=== PATIENT | female | born 2000 | race African-American/Black ===

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

== ENCOUNTER → 2021-05-04 14:55 | Outpatient (CLI) | payer OTHER, SELFPAY ==
--- NOTE | ~2021-05-04 | MR_ITS ---
EXAMINATION: MR knee LT wo con DATE: 05/04/2021 15:36 INDICATION: Acute onset left knee pain post fall one month prior. TECHNIQUE: Magnetic resonance imaging (MRI) of the left knee was performed without intravenous contra st. Sequences included coronal PD-weighted FSE, coronal PD-weighted FS FSE, sagittal T2-weighted FSE , sagittal PD-weighted FS FSE and axial PD weighted fat saturated FSE. COMPARISON: None. FINDINGS: Medial compartment: On the sagittal images there is oblique linear increased signal extending across the peripheral third of the posterior horn of the medial meniscus contacting the superior articular surface on 3 consecut laxmi images consistent with a longitudinal vertical meniscal tear. Signal is however less than fluid s ignal intensity and given the postoperative changes at the knee this remains equivocal for either tea r versus repaired tear in the appropriate clinical setting. Correlate with surgical history. Articula r cartilage is normal. Lateral compartment: Lateral meniscus is normal. Articular cartilage is normal. Patellofemoral compartment: Articular cartilage is normal. Ligaments and tendons: Postoperative change of prior anterior cruciate ligament reconstruction. There is at least partial te ar of the graft 1 bundle which is discontinuous with lax appearance. The second bundle maintains a no rmal orientation and angle relative to normal. And may still be intact. There is however anterior subluxation of the tibia relative to the distal fe mur. Posterior cruciate ligament is normal. There is thickened soft tissue tissue density along the s uperficial margin of the medial collateral ligament without significant surrounding edema which sugge sts scarring related to chronic sprain. The fibular collateral ligament complex is normal. Patellar t endon appears diffusely thickened which could be related to moderate tendinopathy however there appea rs to be sagittal oriented region of the central thinning along the tendon in this could also represe nt residual scarring related to prior patellar tendon autograft harvest. The visualized medial and la teral hamstring tendons as well as the iliotibial band are normal. Fluid: Small left knee joint effusion. No loose osteochondral bodies identified. There is a suprapatellar pl ical band which extends slightly across the rim of the medial trochlea. Osseous/other: There is marrow edema along the posterior margin of the lateral tibial plateau without evident fractu re line suggesting bone contusion related to an anterior tibial subluxation injury. Bone marrow signa l is otherwise normal. No fracture or pathologic marrow replacing process. Scarring at the lateral an d more prominently along the medial aspect of Hoffa's fat pad likely related to prior surgery. IMPRESSION: 1. At least partial graft tear of a prior anterior cruciate ligament reconstruction with bone contusi on along the posterior margin of the lateral tibial plateau and mild residual anterior tibial subluxa tion. 2. Longitudinal vertical tear at the peripheral third of the posterior horn of the medial meniscus. D ifferential would include repaired tear in the appropriate clinical setting. Correlate with details o f prior surgical history and if there has been prior repaired tear in this location could consider MR arthrogram to differentiate residual/recurrent from repaired tear. 3. Scarring along the proximal medial collateral ligament consistent with chronic sprain. 4. Target tendinopathy versus scarring related to prior patellar tendon autograft. Again would correl ate with details of prior surgical history. 5. Small left knee joint effusion. Reviewed, dictated and finalized at location A. ERECTOR AND REPAIRER IMPRESSION: 1. At least partial gra
== END ==
PROVIDERS: Visit Provider Orthopaedic Surgery
DX: M25.562 Pain in left knee (principal); S83.512A Sprain of anterior cruciate ligament of left knee, initial encounter; S80.12XA Contusion of left lower leg, initial encounter; S83.112A Anterior subluxation of proximal end of tibia, left knee, initial encounter; S83.222A Peripheral tear of medial meniscus, current injury, left knee, initial encounter; M25.462 Effusion, left knee
CPT/HCPCS: 73721